=== PATIENT | male | born 1965 | race Caucasian/White ===

== ENCOUNTER 2017-04-25 09:07 | Inpatient (IN) | payer OTHER ==
[2017-04-25 10:58] VITALS: BMI 25.7
--- NOTE | 2017-04-25 15:28 | HP ---
COWS - Scale Resting Pulse: 1= [place] 81-100 Sweatin= Chills/Flushing Restless Observation: 1= Difficult to Sit Still Pupil Size: 0= Normal to Room Light Bone or Joint Aches: 2= Severe Diffuse Aches Runny Nose/ Eye Tearin= None GI Upset > 30mins: 2= Nausea/Diarrhea Tremor Observation: 2= Slight Tremor Visible Yawning Observation: 2= >3x During Session Anxiety or Irritability: 2=Irritable/Anxious Goose Flesh Skin: 3=Piloerection COWS Score: 16 Admission ROS BHS - HPI Chief Complaint: I just relapsed and need the help and get my life back. Allergies/Adverse Reactions: Allergies Allergy/AdvReac Type Severity Reaction Status Date / Time Fish Containing Products Allergy Severe Rash Verified 04/25/17 12:19 History of Present Illness: pt is a 51yr old male with a history of heroin dependence seeking detox for treatment. Exam Limitations: No Limitations - Ebola screening Have you traveled outside of the country in the last 21 days: No Have you had contact with anyone from an Ebola affected area: No Have you been sick,other than usual withdrawal symptoms: No Do you have a fever: No - Review of Systems Constitutional: Chills, Diaphoresis, Changes in sleep EENT: reports: Tearing, Nose Congestion Respiratory: reports: No Symptoms reported Cardiac: reports: No Symptoms Reported GI: reports: No Symptoms Reported : reports: No Symptoms Reported Musculoskeletal: reports: Back Pain Integumentary: reports: Flushing, Sweating Neuro: reports: Headache Endocrine: reports: No Symptoms Reported, Flushing, Intolerance to Heat, Increased Hunger Hematology: reports: No Symptoms Reported Psychiatric: reports: No Sypmtoms Reported, Judgement Intact, Mood/Affect Appropiate, Orientated x3, Agitated, Anxious Other Systems: Reviewed and Negative Patient History - Patient Medical History Hx Anemia: No Hx Asthma: Yes (Pt is on MDI.) Hx Chronic Obstructive Pulmonary Disease (COPD): No Hx Cancer: No Hx Cardiac Disorders: No Hx Congestive Heart Failure: No Hx Hypertension: No Hx Hypercholesterolemia: No Hx Pacemaker: No HX Cerebrovascular Accident: No Hx Seizures: No Hx Dementia: No Hx Diabetes: No Hx Gastrointestinal Disorders: No Hx Liver Disease: No Hx Genitourinary Disorders: No Hx Sexually Transmitted Disorders: No Hx Renal Disease (ESRD): No Hx Thyroid Disease: No Hx Human Immunodeficiency Virus (HIV): No (negative) Hx Hepatitis C: No (negative) Hx Depression: No Hx Suicide Attempt: No (denies) Hx Bipolar Disorder: No Hx Schizophrenia: No - Patient Surgical History Past Surgical History: No Hx Neurologic Surgery: No Hx Cataract Extraction: No Hx Cardiac Surgery: No Hx Lung Surgery: No Hx Breast Surgery: No Hx Breast Biopsy: No Hx Abdominal Surgery: No Hx Appendectomy: No Hx Cholecystectomy: No Hx Genitourinary Surgery: No Hx Section: No Hx Orthopedic Surgery: No Anesthesia Reaction: No - PPD History Previous Implant?: Yes Documented Results: Negative w/o proof Implanted On Prior [facility] Admission?: Yes Date: 11/26/15 PPD to be Administered?: Yes - Reproductive History Patient is a Female of Child Bearing Age (11 -55 yrs old): No - Smoking Cessation Smoking history: Current every day smoker Have you smoked in the past 12 months: Yes Aproximately how many cigarettes per day: 3 Hx Chewing Tobacco Use: No Initiated information on smoking cessation: Yes 'Breaking Loose' booklet given: 04/25/17 - Substance & Tx. History Hx Alcohol Use: No Hx Substance Use: Yes Substance Use Type: Heroin Hx Substance Use Treatment: Yes (last detox [facility] about a year ago.) - Substances Abused Heroin Route: Injection Frequency: Daily Amount used: 8-9 bags Age of first use: 21 Date of Last Use: 04/24/17 Family Disease History - Family Disease History Family History: Denies Admission Physical Exam BHS - Vital Signs Vital Signs: Vital Signs - 24 hr 04/25/17 10:54 Temperature 98.7 F Pulse Rate 97 H Respiratory 20 Rate Blood Pressure 120/86 - Physical General Appearance: Yes: Appropriately Dressed, Moderate Distress, Tremorous, Irritable, Sweating, Anxious HEENTM: Yes: Hearing grossly Normal, Normal Voice, Nasal Congestion Respiratory: Yes: Lungs Clear, Normal Breath Sounds, No Respiratory Distress Neck: Yes: No masses,lesions,Nodules Breast: Yes: Within Normal Limits Cardiology: Yes: Regular Rhythm, Regular Rate, S1, S2 Abdominal: Yes: Normal Bowel Sounds, Non Tender, Soft Genitourinary: Yes: Within Normal Limits Back: Yes: Normal Inspection Musculoskeletal: Yes: Gait Steady, Back pain Extremities: Yes: Normal Capillary Refill, Normal Inspection, Tremors Neurological: Yes: Fully Oriented, Alert, Normal Response Integumentary: Yes: Normal Color, Diaphoresis, Track Serra Lymphatic: Yes: Within Normal Limits - Diagnostic (1) Asthma Current Visit: Yes Status: Chronic Qualifiers: Asthma severity: mild intermittent Asthma complication type: uncomplicated Qualified Code(s): J45.20 - Mild intermittent asthma, uncomplicated (2) Nicotine dependence Current Visit: Yes Status: Chronic Qualifiers: Nicotine product type: cigarettes Substance use status: uncomplicated Qualified Code(s): F17.210 - Nicotine dependence, cigarettes, uncomplicated (3) Opioid dependence with withdrawal Current Visit: Yes Status: Chronic (4) Cocaine dependence Current Visit: Yes Status: Chronic Qualifiers: Substance use status: uncomplicated Qualified Code(s): F14.20 - Cocaine dependence, uncomplicated Cleared for Admission [facility] - Detox or Rehab [facility] Level of Care: Medically Managed Detox Regimen/Protocol: Methadone [facility] Breath Alcohol Content Breath Alcohol Content: 0 Urine Drug Screen - Results Drug Screen Negative: No Urine Drug Screen Results: THC-Marijuana, ATRI-Cocaine, OPI-Opiates
[2017-04-25] MEDS ORDERED: LOPERAMIDE HCL 2 MG CAPSULE PO PRN (15:31)
[2017-04-25] MEDS ORDERED: MAGNESIUM CITRATE 300 ML BOTTLE PO PRN (15:31)
[2017-04-25] MEDS ORDERED: IBUPROFEN 400 MG TABLET (FP) PO PRN (15:31)
[2017-04-25] MEDS ORDERED: MAGNESIUM HYDROX 2400MG/30ML ORAL SUSPENSION 30 ML CUP PO PRN (15:31)
[2017-04-25] MEDS ORDERED: ACETAMINOPHEN 325 MG TABLET (FP) PO PRN (15:31)
[2017-04-25] MEDS ORDERED: hydrOXYzine PAMOATE 50 MG CAPSULE (FP) PO PRN (15:31)
[2017-04-25] MEDS ORDERED: P-EPHED 60MG/TRIPROLIDI 2.5MG TABLET PO PRN (15:31)
[2017-04-25] MEDS ORDERED: MENTHOL/PHENOL 1 EACH UD MM PRN (15:31)
[2017-04-25] MEDS ORDERED: MAG HYDROX/AL HYDROX/SIMETH 30 ML UNIT-DOSE CUP PO PRN (15:31)
[2017-04-25] MEDS ORDERED: guaiFENesin/D-METHORPHAN HB 10 ML UNIT-DOSE CUPS PO PRN (15:31)
[2017-04-25] MEDS ORDERED: ALBUTEROL SO4 6.7 GM HFA INHALER IH PRN (15:33)
[2017-04-25] MEDS ORDERED: METHADONE HCL 10 MG TABLET (FOR DETOX USE ONLY) PO ONE ×2 (15:38→23:00)
[2017-04-25] MEDS: diazePAM 5 MG TABLET PO PRN ×2 (17:18→23:04)
[2017-04-25 17:25] LABS: URINE APPEARANCE SLCLOUDY; URINE BILIRUBIN NEGATIVE (NEGATIVE); URINE BLOOD NEGATIVE (NEGATIVE); URINE COLOR YELLOW; URINE GLUCOSE (UA) 1+ (NEGATIVE); URINE KETONE NEGATIVE (NEGATIVE); URINE LEUK ESTERASE NEGATIVE (NEGATIVE); URINE NITRITE NEGATIVE (NEGATIVE); URINE PROTEIN NEGATIVE (NEGATIVE); URINE UROBILINOGEN NEGATIVE mg/dL (0.2-1.0)
[2017-04-25] MEDS: THIAMINE HCL 100 MG TABLET (FP) PO SCH (23:03)
[2017-04-26] MEDS: diazePAM 5 MG TABLET PO PRN ×4 (05:53→22:31)
[2017-04-26] MEDS ORDERED: METHADONE HCL 10 MG TABLET (FOR DETOX USE ONLY) PO ONE (10:00)
[2017-04-26 10:41] LABS: MCH 22.6 pg (25.7-33.7); MCHC 31.5 g/dl (32.0-35.9); MEAN CELL VOLUME 71.8 fl (80-96); MEAN PLT VOLUME 10.6 fl (7.5-11.1); PLATELET COUNT 201 K/MM3 (134-434); RDW 16.5 % (11.9-15.9); WHITE BLOOD COUNT 8.2 K/mm3 (4.0-10.0)
[2017-04-26 10:50] LABS: ALBUMIN 3.6 g/dl (3.4-5.0); ANION GAP 11 (8-16); BILIRUBIN,TOTAL 0.9 mg/dL (0.2-1.0); CALCIUM 8.8 mg/dL (8.5-10.1); CO2 28 mmol/L (21-32); GLUCOSE,RANDOM 130 mg/dL (74-106); SGOT/AST 97 U/L (15-37); SGPT/ALT 149 U/L (12-78); TOT PROT 7.5 g/dl (6.4-8.2)
[2017-04-26 10:51] LABS: ALK PHOS 84 U/L (45-117)
[2017-04-26] MEDS: PRENATAL VITAMINS W/ FOLIC ACID TABLET (FP) PO SCH (11:12)
[2017-04-26] MEDS: NICOTINE 14 MG/24 HOURS TOPICAL PATCH TD SCH (11:14)
--- NOTE | 2017-04-26 12:34 | PN ---
BHS COWS - Scale Resting Pulse: 1= [place] 81-100 Sweatin= Chills/Flushing Restless Observation: 1= Difficult to Sit Still Pupil Size: 0= Normal to Room Light Bone or Joint Aches: 2= Severe Diffuse Aches Runny Nose/ Eye Tearin= Runny Nose/Eyes GI Upset > 30mins: 2= Nausea/Diarrhea Tremor Observation of Outstretched Hands: 2= Slight Tremor Visible Yawning Observation: 1= 1-2x During Session Anxiety or Irritability: 2=Irritable/Anxious Goose Flesh Skin: 0=Smooth Skin COWS Score: 14 S Progress Note (SOAP) Subjective: Interrupted sleep, abdominal discomfort, back pain Objective: 04/26/17 12:34 Vital Signs - 8 hr 04/26/17 04/26/17 06:39 10:59 Temperature 98.1 F 97.7 F Pulse Rate 82 100 H Respiratory 18 18 Rate Blood Pressure 150/86 162/81 Laboratory Last Values WBC 8.2 K/mm3 (4.0-10.0) 04/26/17 06:08 RBC 6.27 M/mm3 (4.00-5.60) H 04/26/17 06:08 Hgb 14.2 GM/dL (11.7-16.9) 04/26/17 06:08 Hct 45.0 % (35.4-49) 04/26/17 06:08 MCV 71.8 fl (80-96) L 04/26/17 06:08 MCH 22.6 pg (25.7-33.7) L 04/26/17 06:08 MCHC 31.5 g/dl (32.0-35.9) L 04/26/17 06:08 RDW 16.5 % (11.9-15.9) H 04/26/17 06:08 Plt Count 201 K/MM3 (134-434) 04/26/17 06:08 MPV 10.6 fl (7.5-11.1) D 04/26/17 06:08 Sodium 140 mmol/L (136-145) 04/26/17 06:08 Potassium 3.9 mmol/L (3.5-5.1) 04/26/17 06:08 Chloride 101 mmol/L (98-107) 04/26/17 06:08 Carbon Dioxide 28 mmol/L (21-32) 04/26/17 06:08 Anion Gap 11 (8-16) 04/26/17 06:08 BUN 12 mg/dL (7-18) D 04/26/17 06:08 Creatinine 1.0 mg/dL (0.7-1.3) 04/26/17 06:08 Creat Clearance w eGFR > 60 (>60) 04/26/17 06:08 Random Glucose 130 mg/dL (74-106) H D 04/26/17 06:08 Calcium 8.8 mg/dL (8.5-10.1) 04/26/17 06:08 Total Bilirubin 0.9 mg/dL (0.2-1.0) D 04/26/17 06:08 AST 97 U/L (15-37) H D 04/26/17 06:08 ALT 149 U/L (12-78) H D 04/26/17 06:08 Alkaline Phosphatase 84 U/L (45-117) 04/26/17 06:08 Total Protein 7.5 g/dl (6.4-8.2) 04/26/17 06:08 Albumin 3.6 g/dl (3.4-5.0) 04/26/17 06:08 Urine Color Yellow 04/25/17 15:00 Urine Appearance Slcloudy 04/25/17 15:00 Urine pH 5.0 (5.0-8.0) D 04/25/17 15:00 Ur Specific [place] 1.020 (1.005-1.025) 04/25/17 15:00 Urine Protein Negative (NEGATIVE) 04/25/17 15:00 Urine Glucose (UA) 1+ (NEGATIVE) H 04/25/17 15:00 Urine Ketones Negative (NEGATIVE) 04/25/17 15:00 Urine Blood Negative (NEGATIVE) 04/25/17 15:00 Urine Nitrite Negative (NEGATIVE) 04/25/17 15:00 Urine Bilirubin Negative (NEGATIVE) 04/25/17 15:00 Urine Urobilinogen Negative mg/dL (0.2-1.0) 04/25/17 15:00 labs noted Assessment: 04/26/17 12:34 withdrawal sx Plan: continue detox
[2017-04-26] MEDS: diphenhydrAMINE HCL 50 MG CAPSULE PO PRN (22:31)
[2017-04-26] MEDS: THIAMINE HCL 100 MG TABLET (FP) PO SCH (22:31)
[2017-04-27] MEDS ORDERED: METHADONE HCL 5 MG TABLET (FOR DETOX USE ONLY) PO ONE (10:00)
[2017-04-27] MEDS: PRENATAL VITAMINS W/ FOLIC ACID TABLET (FP) PO SCH (10:41)
[2017-04-27] MEDS: NICOTINE 14 MG/24 HOURS TOPICAL PATCH TD SCH (10:41)
[2017-04-27] MEDS: diazePAM 5 MG TABLET PO PRN ×2 (10:44→20:12)
--- NOTE | 2017-04-27 15:51 | PN ---
BHS COWS - Scale Resting Pulse: 2= [place] 101-120 Sweatin=Flushed/Facial Moisture Restless Observation: 1= Difficult to Sit Still Pupil Size: 0= Normal to Room Light Bone or Joint Aches: 2= Severe Diffuse Aches Runny Nose/ Eye Tearin= Runny Nose/Eyes GI Upset > 30mins: 2= Nausea/Diarrhea Tremor Observation of Outstretched Hands: 2= Slight Tremor Visible Yawning Observation: 1= 1-2x During Session Anxiety or Irritability: 2=Irritable/Anxious Goose Flesh Skin: 0=Smooth Skin COWS Score: 16 BHS Progress Note (SOAP) Subjective: Sweating,anxiety,body aches,joint pain Objective: 04/27/17 15:50 Vital Signs - 8 hr 04/27/17 04/27/17 10:18 13:44 Temperature 98.1 F 96.3 F L Pulse Rate 106 H 106 H Respiratory 18 16 Rate Blood Pressure 132/74 127/81 Laboratory Tests 04/25/17 04/26/17 04/26/17 15:00 06:08 06:08 WBC 8.2 RBC 6.27 H Hgb 14.2 Hct 45.0 MCV 71.8 L MCH 22.6 L MCHC 31.5 L RDW 16.5 H Plt Count 201 MPV 10.6 D Sodium 140 Potassium 3.9 Chloride 101 Carbon Dioxide 28 Anion Gap 11 BUN 12 D Creatinine 1.0 Creat Clearance w eGFR > 60 Random Glucose 130 H D Calcium 8.8 Total Bilirubin 0.9 D AST 97 H D ALT 149 H D Alkaline Phosphatase 84 Total Protein 7.5 Albumin 3.6 Urine Color Yellow Urine Appearance Slcloudy Urine pH 5.0 D Ur Specific [place] 1.020 Urine Protein Negative Urine Glucose (UA) 1+ H Urine Ketones Negative Urine Blood Negative Urine Nitrite Negative Urine Bilirubin Negative Urine Urobilinogen Negative RPR Titer 04/26/17 06:08 WBC RBC Hgb Hct MCV MCH MCHC RDW Plt Count MPV Sodium Potassium Chloride Carbon Dioxide Anion Gap BUN Creatinine Creat Clearance w eGFR Random Glucose Calcium Total Bilirubin AST ALT Alkaline Phosphatase Total Protein Albumin Urine Color Urine Appearance Urine pH Ur Specific [place] Urine Protein Urine Glucose (UA) Urine Ketones Urine Blood Urine Nitrite Urine Bilirubin Urine Urobilinogen RPR Titer Nonreactive labs noted Assessment: 04/27/17 15:50 Withdrawal sx. Plan: Continue detox
[2017-04-27] MEDS: diphenhydrAMINE HCL 50 MG CAPSULE PO PRN (22:45)
[2017-04-27] MEDS: THIAMINE HCL 100 MG TABLET (FP) PO SCH (22:46)
[2017-04-28] MEDS: diazePAM 5 MG TABLET PO PRN ×3 (00:27→10:55)
[2017-04-28] MEDS ORDERED: METHADONE HCL 5 MG TABLET (FOR DETOX USE ONLY) PO ONE (10:00)
[2017-04-28] MEDS: PRENATAL VITAMINS W/ FOLIC ACID TABLET (FP) PO SCH (10:55)
[2017-04-28] MEDS: NICOTINE 14 MG/24 HOURS TOPICAL PATCH TD SCH (10:55)
--- NOTE | 2017-04-28 11:25 | PN ---
BHS Progress Note (SOAP) Subjective: alert,irritable,anxious,interrupted sleep,tremor,pain in the body Objective: 04/28/17 11:24 Vital Signs Temperature 97.8 F 04/28/17 10:19 Pulse Rate 105 H 04/28/17 10:19 Respiratory Rate 18 04/28/17 10:19 Blood Pressure 143/84 04/28/17 10:19 O2 Sat by Pulse Oximetry (%) Assessment: 04/28/17 11:24 withdrawal symptom 04/28/17 11:25 Plan: continue detox
--- NOTE | 2017-04-28 17:03 | EKG ---
Test Reason : Blood Pressure : / mmHG Vent. Rate : 092 BPM Atrial Rate : 092 BPM P-R Int : 134 ms QRS Dur : 080 ms QT Int : 362 ms P-R-T Axes : 066 065 050 degrees QTc Int : 447 ms NORMAL SINUS RHYTHM MODERATE VOLTAGE CRITERIA FOR LVH, MAY BE NORMAL VARIANT BORDERLINE ECG NO PREVIOUS ECGS AVAILABLE Confirmed by JOCY BLOOD MD ([id number]) on 04/28/2017 5:03:03 PM Referred By: Confirmed By:JOCY BLOOD MD
[2017-04-28] MEDS: THIAMINE HCL 100 MG TABLET (FP) PO SCH (22:45)
[2017-04-28] MEDS ORDERED: TRIMETHOBENZAMIDE HCL 200MG/2ML INJ IM PRN (23:27)
--- NOTE | 2017-04-29 09:39 | PN ---
BHS Progress Note (SOAP) Subjective: alert,interrupted sleep Objective: 04/29/17 09:37 Vital Signs Temperature 97.7 F 04/29/17 06:00 Pulse Rate 97 H 04/29/17 06:00 Respiratory Rate 18 04/29/17 06:00 Blood Pressure 134/89 04/29/17 06:00 O2 Sat by Pulse Oximetry (%) 04/29/17 09:38 Assessment: 04/29/17 09:38 patient is stable,no withdrawal symptom Plan: discharge today,follow up with after care program as arrangement
--- NOTE | 2017-04-29 09:54 | DS ---
[facility] Detox Discharge Summary Admission Date: 04/25/17 Discharge Date: 04/29/17 - History Present History: Cocaine Dependence, Opioid Dependence Additional Comments: follow up with after care program as arrangement Pertinent Past History: asthma nicotine dependence - Physical Exam Results Vital Signs: Vital Signs Temperature 97.7 F 04/29/17 06:00 Pulse Rate 97 H 04/29/17 06:00 Respiratory Rate 18 04/29/17 06:00 Blood Pressure 134/89 04/29/17 06:00 O2 Sat by Pulse Oximetry (%) Pertinent Admission Physical Exam Findings: withdrawal symptom - Treatment Hospital Course: Detox Protocol Followed, Detoxed Safely, Responded well, Discharged Condition Good, Rehab Referral Accepted Patient has Accepted a Rehab Referral to: [facility] - Medication Discharge Medications: Ambulatory Orders Albuterol Sulfate Inhaler - [Ventolin HFA Inhaler -] 2 puff IH Q4H PRN #1 inhaler 04/29/17 Albuterol Sulfate Inhaler - [Ventolin HFA Inhaler -] 2 puff IH Q4H PRN #1 inhaler 04/29/17 - Diagnosis (1) Opioid dependence with withdrawal Current Visit: Yes Status: Chronic (2) Asthma Current Visit: Yes Status: Chronic Qualifiers: Asthma severity: mild intermittent Asthma complication type: uncomplicated Qualified Code(s): J45.20 - Mild intermittent asthma, uncomplicated (3) Cocaine dependence Current Visit: Yes Status: Chronic Qualifiers: Substance use status: uncomplicated Qualified Code(s): F14.20 - Cocaine dependence, uncomplicated (4) Nicotine dependence Current Visit: Yes Status: Chronic Qualifiers: Nicotine product type: cigarettes Substance use status: uncomplicated Qualified Code(s): F17.210 - Nicotine dependence, cigarettes, uncomplicated - AMA Did Patient Leave Against Medical Advice: No
[2017-04-29] MEDS ORDERED: METHADONE HCL 10 MG TABLET (FOR DETOX USE ONLY) PO ONE (10:00)
[2017-04-29 10:02] VITALS: BP 136/84; PULSE 107; TEMP 97.5
[2017-04-29] MEDS: PRENATAL VITAMINS W/ FOLIC ACID TABLET (FP) PO SCH (11:01)
[2017-04-29] MEDS: diphenhydrAMINE HCL 50 MG CAPSULE PO PRN (11:01)
[2017-04-29] MEDS: NICOTINE 14 MG/24 HOURS TOPICAL PATCH TD SCH (11:01)
[2017-04-30] MEDS ORDERED: METHADONE HCL 5 MG TABLET (FOR DETOX USE ONLY) PO ONE (06:00)
== END 2017-04-29 11:22 | disposition home or self-care (01) | DRG 773 ==
LOC: YASAS 09:07 → Y6N 13:49
PROVIDERS: ADMIT Internal Medicine; ATTEND Internal Medicine
PROC: HZ2ZZZZ Detoxification Services for Substance Abuse Treatment (ICD-10-PCS; principal; 2017-04-25)
DX: F11.23 Opioid dependence with withdrawal (principal); F14.20 Cocaine dependence, uncomplicated; F17.210 Nicotine dependence, cigarettes, uncomplicated; J45.20 Mild intermittent asthma, uncomplicated
CPT/HCPCS: 36415; 80053; 81003; 85027; 86593; 93005; 93010

== ENCOUNTER 2018-05-10 17:16 | Inpatient (IN) | payer OTHER ==
[2018-05-10 17:45] VITALS: BMI 23.5
--- NOTE | 2018-05-10 19:17 | HP ---
COWS - Scale Resting Pulse: 1= [place] 81-100 Sweatin= Chills/Flushing Restless Observation: 3= Extraneous Movement Pupil Size: 1= Pupils >than Normal Bone or Joint Aches: 2= Severe Diffuse Aches Runny Nose/ Eye Tearin= Runny Nose/Eyes GI Upset > 30mins: 2= Nausea/Diarrhea Tremor Observation: 2= Slight Tremor Visible Yawning Observation: 1= 1-2x During Session Anxiety or Irritability: 2=Irritable/Anxious Goose Flesh Skin: 0=Smooth Skin COWS Score: 17 Admission ROS S - HPI Chief Complaint: i need help to sop using heroin,street methadone,marijuana Allergies/Adverse Reactions: Allergies Allergy/AdvReac Type Severity Reaction Status Date / Time Fish Containing Products Allergy Severe Rash Verified 05/10/18 17:39 History of Present Illness: this 52 years old male with heroin,marijuana,street methadone dependence, [facility],withdrawal symptom,last treatment 01/26 [facility] multiple admissions in detox but keep relapsing nicotine dependence longest period of sobriety 10 years history of asthma weight loss Exam Limitations: No Limitations - Ebola screening Have you traveled outside of the country in the last 21 days: No (N) Have you had contact with anyone from an Ebola affected area: No Have you been sick,other than usual withdrawal symptoms: No Do you have a fever: No - Review of Systems Constitutional: Chills, Loss of Appetite, Malaise, Night Sweats, Changes in sleep, Weakness, Unintentional Wgt. Loss EENT: reports: Tearing, Nose Congestion Respiratory: reports: No Symptoms reported, Other (asthma) Cardiac: reports: Palpitations GI: reports: Diarrhea, Nausea, Vomiting, Abdominal cramping : reports: No Symptoms Reported Musculoskeletal: reports: Back Pain, Joint Pain, Muscle Pain, Joint Stiffness Integumentary: reports: Dryness Neuro: reports: Headache, Tremors Endocrine: reports: No Symptoms Reported Hematology: reports: No Symptoms Reported Psychiatric: reports: No Sypmtoms Reported, Judgement Intact, Mood/Affect Appropiate, Orientated x3 Patient History - Patient Medical History Hx Anemia: No Hx Asthma: Yes (Pt is on MDI.) Hx Chronic Obstructive Pulmonary Disease (COPD): No Hx Cancer: No Hx Cardiac Disorders: No Hx Congestive Heart Failure: No Hx Hypertension: No Hx Hypercholesterolemia: No Hx Pacemaker: No HX Cerebrovascular Accident: No Hx Seizures: No Hx Dementia: No Hx Diabetes: No Hx Gastrointestinal Disorders: No Hx Liver Disease: No Hx Genitourinary Disorders: No Hx Sexually Transmitted Disorders: No Hx Renal Disease (ESRD): No Hx Thyroid Disease: No Hx Human Immunodeficiency Virus (HIV): No (negative last 10/26) Hx Hepatitis C: No (negative) Hx Depression: No Hx Suicide Attempt: No (denies) Hx Bipolar Disorder: No Hx Schizophrenia: No Other Medical History: no suicidal,no homicidal - Patient Surgical History Past Surgical History: No Hx Neurologic Surgery: No Hx Cataract Extraction: No Hx Cardiac Surgery: No Hx Lung Surgery: No Hx Breast Surgery: No Hx Breast Biopsy: No Hx Abdominal Surgery: No Hx Appendectomy: No Hx Cholecystectomy: No Hx Genitourinary Surgery: No Hx Section: No Hx Orthopedic Surgery: No Anesthesia Reaction: No - PPD History Previous Implant?: Yes Documented Results: Negative w/proof Implanted On Prior R Admission?: Yes Date: 04/27/17 Results: 0 mm PPD to be Administered?: Yes - Smoking Cessation Smoking history: Current every day smoker Have you smoked in the past 12 months: Yes Aproximately how many cigarettes per day: 3 Hx Chewing Tobacco Use: No Initiated information on smoking cessation: Yes 'Breaking Loose' booklet given: 05/10/18 - Substance & Tx. History Hx Alcohol Use: No Hx Substance Use: Yes Substance Use Type: Heroin, Marijuana Hx Substance Use Treatment: Yes ([facility] completed) - Substances Abused Heroin Route: Injection Frequency: Daily Amount used: 10 bags Age of first use: 25 Date of Last Use: 05/09/18 Marijuana/Hashish Route: Smoking Frequency: Daily Amount used: 2 blunts Age of first use: 15 Date of Last Use: 05/06/18 Non-Rx Methadone Route: Oral Frequency: 1-2 times per week Amount used: 10mg Age of first use: 52 Date of Last Use: 05/06/18 Family Disease History - Family Disease History Family History: Denies Admission Physical Exam BHS - Vital Signs Vital Signs: Vital Signs - 24 hr 05/10/18 05/10/18 17:30 17:43 Temperature 98.6 F 98.6 F Pulse Rate 87 87 Respiratory 19 19 Rate Blood Pressure 148/92 148/92 - Physical General Appearance: Yes: Moderate Distress, Tremorous, Irritable, Sweating, Anxious HEENTM: Yes: Normal ENT Inspection, RADHA, Pharynx Normal Respiratory: Yes: Lungs Clear, Normal Breath Sounds, No Respiratory Distress Neck: Yes: Within Normal Limits Breast: Yes: Within Normal Limits Cardiology: Yes: Within Normal Limits, Regular Rhythm, Regular Rate, S1, S2 Abdominal: Yes: Within Normal Limits, Normal Bowel Sounds, Non Tender, Soft Genitourinary: Yes: Within Normal Limits Back: Yes: Muscle Spasm Musculoskeletal: Yes: Back pain, Joint Stiffness, Muscle Pain Extremities: Yes: Within Normal Limits, Normal Range of Motion, Tremors Neurological: Yes: [employer] II-XII NML intact, Fully Oriented, Alert, Motor Strength 5/5 Integumentary: Yes: Dry, Track Serra Lymphatic: Yes: Within Normal Limits - Diagnostic (1) Opioid dependence with withdrawal Current Visit: No Status: Chronic (2) Asthma Current Visit: No Status: Chronic Qualifiers: Asthma severity: mild intermittent Asthma complication type: uncomplicated (3) Cocaine dependence Current Visit: No Status: Chronic Qualifiers: Substance use status: uncomplicated Qualified Code(s): F14.20 - Cocaine dependence, uncomplicated (4) Nicotine dependence Current Visit: No Status: Chronic Qualifiers: Nicotine product type: cigarettes Substance use status: uncomplicated Qualified Code(s): F17.210 - Nicotine dependence, cigarettes, uncomplicated (5) Weight loss Current Visit: Yes Status: Acute (6) IV drug user Current Visit: Yes Status: Acute Cleared for Admission [facility] - Detox or Rehab [facility] Level of Care: Medically Managed Detox Regimen/Protocol: Methadone [facility] Breath Alcohol Content Breath Alcohol Content: 0 Urine Drug Screen - Results Drug Screen Negative: No Urine Drug Screen Results: THC-Marijuana, OPI-Opiates, MTD-Methadone
[2018-05-10] MEDS ORDERED: MAGNESIUM HYDROX 2400MG/30ML ORAL SUSPENSION 30 ML CUP PO PRN (19:36)
[2018-05-10] MEDS ORDERED: ACETAMINOPHEN 325 MG TABLET (FP) PO PRN (19:36)
[2018-05-10] MEDS ORDERED: hydrOXYzine PAMOATE 25 MG CAPSULE (FP) PO PRN (19:36)
[2018-05-10] MEDS ORDERED: P-EPHED 60MG/TRIPROLIDI 2.5MG TABLET PO PRN (19:36)
[2018-05-10] MEDS ORDERED: IBUPROFEN 400 MG TABLET (FP) PO PRN (19:36)
[2018-05-10] MEDS ORDERED: MENTHOL/PHENOL 1 EACH UD MM PRN (19:36)
[2018-05-10] MEDS ORDERED: guaiFENesin/D-METHORPHAN HB 10 ML UNIT-DOSE CUPS PO PRN (19:36)
[2018-05-10] MEDS ORDERED: MAGNESIUM CITRATE 300 ML BOTTLE PO PRN (19:36)
[2018-05-10] MEDS ORDERED: ALBUTEROL SO4 8 GM HFA INHALER IH PRN (19:40)
[2018-05-10] MEDS ORDERED: METHADONE HCL 10 MG TABLET (FOR DETOX USE ONLY) PO ONE ×2 (20:00→23:00)
[2018-05-10] MEDS: diazePAM 5 MG TABLET PO PRN (20:15)
[2018-05-10] MEDS ORDERED: MELATONIN 5 MG TABLETS PO PRN (22:00)
[2018-05-10] MEDS: THIAMINE HCL 100 MG TABLET (FP) PO SCH (22:26)
[2018-05-10] MEDS: cloNIDine HCL 0.1 MG TABLET PO SCH (22:26)
[2018-05-10] MEDS: CYCLOBENZAPRINE HCL 10 MG TABLET (FP) PO PRN (22:26)
[2018-05-10 22:55] LABS: URINE APPEARANCE CLOUDY; URINE BILIRUBIN NEGATIVE (<2.0 mg/dL); URINE COLOR DKYELLOW; URINE GLUCOSE (UA) NEGATIVE (NEGATIVE); URINE KETONE NEGATIVE (NEGATIVE); URINE LEUK ESTERASE NEGATIVE (NEGATIVE); URINE NITRITE NEGATIVE (NEGATIVE); URINE PROTEIN NEGATIVE (NEGATIVE); URINE UROBILINOGEN NEGATIVE mg/dL (0.2-1.0)
[2018-05-10 22:58] LABS: EPI CELLS RARE /HPF (FEW); URINE MUCUS RARE
--- NOTE | 2018-05-11 06:06 | EKG ---
Test Reason : Blood Pressure : / mmHG Vent. Rate : 084 BPM Atrial Rate : 084 BPM P-R Int : 126 ms QRS Dur : 082 ms QT Int : 378 ms P-R-T Axes : 070 075 052 degrees QTc Int : 446 ms NORMAL SINUS RHYTHM WITH SINUS ARRHYTHMIA VOLTAGE CRITERIA FOR LEFT VENTRICULAR HYPERTROPHY ABNORMAL ECG WHEN COMPARED WITH ECG OF 25-APR-2017 16:34, NO SIGNIFICANT CHANGE WAS FOUND Confirmed by MIKO ALCANTAR MD ([id number]) on 05/11/2018 6:06:12 AM Referred By: Confirmed By:MIKO ALCANTAR MD
[2018-05-11] MEDS: diazePAM 5 MG TABLET PO PRN ×2 (09:26→22:23)
[2018-05-11] MEDS ORDERED: METHADONE HCL 10 MG TABLET (FOR DETOX USE ONLY) PO ONE (10:00)
[2018-05-11 10:23] LABS: HEMATOCRIT 44.6 % (35.4-49); HEMOGLOBIN 13.8 GM/dL (11.7-16.9); MCH 22.7 pg (25.7-33.7); MCHC 30.9 g/dl (32.0-35.9); MEAN CELL VOLUME 73.7 fl (80-96); MEAN PLT VOLUME 9.6 fl (7.5-11.1); PLATELET COUNT 167 K/MM3 (134-434); RBC 6.06 M/mm3 (4.00-5.60); RDW 16.4 % (11.9-15.9)
[2018-05-11] MEDS: CYCLOBENZAPRINE HCL 10 MG TABLET (FP) PO PRN ×2 (10:26→22:24)
[2018-05-11] MEDS: cloNIDine HCL 0.1 MG TABLET PO SCH ×2 (10:26→22:24)
[2018-05-11] MEDS: PRENATAL VITAMINS W/ FOLIC ACID TABLET (FP) PO SCH (10:26)
[2018-05-11 10:30] LABS: ALBUMIN 3.2 g/dl (3.4-5.0); ALK PHOS 80 U/L (45-117); ANION GAP 6 MMOL/L (8-16); BILIRUBIN,TOTAL 0.5 mg/dL (0.2-1); BLOOD UREA NITROGEN 12 mg/dL (7-18); CALCIUM 9.2 mg/dL (8.5-10.1); CHLORIDE 102 mmol/L (98-107); CO2 32 mmol/L (21-32); CREATININE 0.8 mg/dL (0.55-1.3); GLUCOSE,RANDOM 100 mg/dL (74-106); POTASSIUM 4.1 mmol/L (3.5-5.1); SGOT/AST 120 U/L (15-37); SGPT/ALT 206 U/L (13-61); SODIUM 140 mmol/L (136-145); TOT PROT 7.1 g/dl (6.4-8.2)
--- NOTE | 2018-05-11 17:22 | PN ---
BHS COWS - Scale Resting Pulse: 1= [place] 81-100 Sweatin=Flushed/Facial Moisture Restless Observation: 1= Difficult to Sit Still Pupil Size: 0= Normal to Room Light Bone or Joint Aches: 1= Mild Discomfort Runny Nose/ Eye Tearin= Runny Nose/Eyes GI Upset > 30mins: 1= Stomach Cramp Tremor Observation of Outstretched Hands: 2= Slight Tremor Visible Yawning Observation: 1= 1-2x During Session Anxiety or Irritability: 1=Feels Anxious/Irritable Goose Flesh Skin: 0=Smooth Skin COWS Score: 12 BHS Progress Note (SOAP) Subjective: SWEATS CHILLS SLEEPLESS Objective: 05/11/18 17:19 A & OX 3 Vital Signs Temperature 98.4 F 05/11/18 13:28 Pulse Rate 81 05/11/18 13:28 Respiratory Rate 18 05/11/18 13:28 Blood Pressure 109/71 05/11/18 13:28 O2 Sat by Pulse Oximetry (%) Laboratory Last Values WBC 7.0 K/mm3 (4.0-10.0) 05/11/18 07:00 RBC 6.06 M/mm3 (4.00-5.60) H 05/11/18 07:00 Hgb 13.8 GM/dL (11.7-16.9) 05/11/18 07:00 Hct 44.6 % (35.4-49) 05/11/18 07:00 MCV 73.7 fl (80-96) L 05/11/18 07:00 MCH 22.7 pg (25.7-33.7) L 05/11/18 07:00 MCHC 30.9 g/dl (32.0-35.9) L 05/11/18 07:00 RDW 16.4 % (11.9-15.9) H 05/11/18 07:00 Plt Count 167 K/MM3 (134-434) 05/11/18 07:00 MPV 9.6 fl (7.5-11.1) 05/11/18 07:00 Sodium 140 mmol/L (136-145) 05/11/18 07:00 Potassium 4.1 mmol/L (3.5-5.1) 05/11/18 07:00 Chloride 102 mmol/L (98-107) 05/11/18 07:00 Carbon Dioxide 32 mmol/L (21-32) 05/11/18 07:00 Anion Gap 6 MMOL/L (8-16) L 05/11/18 07:00 BUN 12 mg/dL (7-18) 05/11/18 07:00 Creatinine 0.8 mg/dL (0.55-1.3) 05/11/18 07:00 Creat Clearance w eGFR > 60 (>60) 05/11/18 07:00 Random Glucose 100 mg/dL (74-106) 05/11/18 07:00 Calcium 9.2 mg/dL (8.5-10.1) 05/11/18 07:00 Total Bilirubin 0.5 mg/dL (0.2-1) 05/11/18 07:00 AST 120 U/L (15-37) H 05/11/18 07:00 ALT 206 U/L (13-61) H 05/11/18 07:00 Alkaline Phosphatase 80 U/L (45-117) 05/11/18 07:00 Total Protein 7.1 g/dl (6.4-8.2) 05/11/18 07:00 Albumin 3.2 g/dl (3.4-5.0) L 05/11/18 07:00 Urine Color Dkyellow 05/10/18 22:45 Urine Appearance Cloudy 05/10/18 22:45 Urine pH 5.0 (5.0-8.0) 05/10/18 22:45 Ur Specific [place] 1.020 (1.001-1.035) 05/10/18 22:45 Urine Protein Negative (NEGATIVE) 05/10/18 22:45 Urine Glucose (UA) Negative (NEGATIVE) 05/10/18 22:45 Urine Ketones Negative (NEGATIVE) 05/10/18 22:45 Urine Blood 3+ (NEGATIVE) H 05/10/18 22:45 Urine Nitrite Negative (NEGATIVE) 05/10/18 22:45 Urine Bilirubin Negative (<2.0 mg/dL) 05/10/18 22:45 Urine Urobilinogen Negative mg/dL (0.2-1.0) 05/10/18 22:45 Ur Leukocyte Esterase Negative (NEGATIVE) 05/10/18 22:45 Urine WBC (Auto) 6 /hpf (3-5) 05/10/18 22:45 Urine RBC (Auto) 74 /hpf (0-3) 05/10/18 22:45 Ur Epithelial Cells Rare /HPF (FEW) 05/10/18 22:45 Urine Mucus Rare 05/10/18 22:45 RPR Titer Nonreactive (NONREACTIVE) 05/11/18 07:00 HIGH AST/ALT/ALK PHOSP ABNORMAL URINE RESULT Assessment: 05/11/18 17:22 WITHDRAWAL SX ABNORMAL URINALYSIS Plan: CONTINUE DETOX INCREASE WATER HYDRATION REPEAT UA IN A.M
[2018-05-11] MEDS: THIAMINE HCL 100 MG TABLET (FP) PO SCH (22:23)
[2018-05-12] MEDS: diazePAM 5 MG TABLET PO PRN ×3 (09:40→22:20)
[2018-05-12] MEDS ORDERED: METHADONE HCL 5 MG TABLET (FOR DETOX USE ONLY) PO ONE (10:00)
[2018-05-12] MEDS: PRENATAL VITAMINS W/ FOLIC ACID TABLET (FP) PO SCH (10:20)
[2018-05-12] MEDS: CYCLOBENZAPRINE HCL 10 MG TABLET (FP) PO PRN ×2 (10:20→22:20)
[2018-05-12] MEDS: cloNIDine HCL 0.1 MG TABLET PO SCH ×2 (10:20→22:20)
[2018-05-12] MEDS: LIDOCAINE 5% TOPICAL PATCH TP SCH (11:45)
--- NOTE | 2018-05-12 11:57 | PN ---
[facility] COWS - Scale Resting Pulse: 1= ME 81-100 Sweatin= Chills/Flushing Restless Observation: 0= Sits Still Pupil Size: 2= Moderately Dilated Bone or Joint Aches: 2= Severe Diffuse Aches Runny Nose/ Eye Tearin= None GI Upset > 30mins: 1= Stomach Cramp Tremor Observation of Outstretched Hands: 0= None Yawning Observation: 0= None Anxiety or Irritability: 1=Feels Anxious/Irritable Goose Flesh Skin: 3=Piloerection COWS Score: 11 BHS Progress Note (SOAP) Subjective: PATIENT C/O CHILLS, STOMACH CRAMPS AND BODY ACHES. Objective: 05/12/18 11:55 Vital Signs Temperature 97.8 F 05/12/18 09:27 Pulse Rate 94 H 05/12/18 09:27 Respiratory Rate 20 05/12/18 09:27 Blood Pressure 116/77 05/12/18 09:27 O2 Sat by Pulse Oximetry (%) Laboratory Tests 05/10/18 05/11/18 05/11/18 22:45 07:00 07:00 WBC 7.0 RBC 6.06 H Hgb 13.8 Hct 44.6 MCV 73.7 L MCH 22.7 L MCHC 30.9 L RDW 16.4 H Plt Count 167 MPV 9.6 Sodium 140 Potassium 4.1 Chloride 102 Carbon Dioxide 32 Anion Gap 6 L BUN 12 Creatinine 0.8 Creat Clearance w eGFR > 60 Random Glucose 100 Calcium 9.2 Total Bilirubin 0.5 AST 120 H ALT 206 H Alkaline Phosphatase 80 Total Protein 7.1 Albumin 3.2 L Urine Color Dkyellow Urine Appearance Cloudy Urine pH 5.0 Ur Specific [place] 1.020 Urine Protein Negative Urine Glucose (UA) Negative Urine Ketones Negative Urine Blood 3+ H Urine Nitrite Negative Urine Bilirubin Negative Urine Urobilinogen Negative Ur Leukocyte Esterase Negative Urine WBC (Auto) 6 Urine RBC (Auto) 74 Ur Epithelial Cells Rare Urine Mucus Rare RPR Titer 05/11/18 07:00 WBC RBC Hgb Hct MCV MCH MCHC RDW Plt Count MPV Sodium Potassium Chloride Carbon Dioxide Anion Gap BUN Creatinine Creat Clearance w eGFR Random Glucose Calcium Total Bilirubin AST ALT Alkaline Phosphatase Total Protein Albumin Urine Color Urine Appearance Urine pH Ur Specific [place] Urine Protein Urine Glucose (UA) Urine Ketones Urine Blood Urine Nitrite Urine Bilirubin Urine Urobilinogen Ur Leukocyte Esterase Urine WBC (Auto) Urine RBC (Auto) Ur Epithelial Cells Urine Mucus RPR Titer Nonreactive ALERT AND ORIENTED X 3 SKIN + GOOSE FLESH CAR S1S2 RESP CTA BL GI SOFT, BS+, NT EXT NO EDEMA Assessment: 05/12/18 11:56 OPIOD WITHDRAWAL SYNDROME Plan: CONTINUE DETOX ORDERED ENCOURAGE ORAL FLUIDS LIDOCAINE PATCH ORDERED FOR LBP CONTINUE TO MONITOR CLINICALLY
[2018-05-12 15:01] LABS: URINE APPEARANCE SLCLOUDY; URINE BILIRUBIN NEGATIVE (<2.0 mg/dL); URINE COLOR YELLOW; URINE GLUCOSE (UA) NEGATIVE (NEGATIVE); URINE KETONE NEGATIVE (NEGATIVE); URINE LEUK ESTERASE NEGATIVE (NEGATIVE); URINE NITRITE NEGATIVE (NEGATIVE); URINE PROTEIN NEGATIVE (NEGATIVE); URINE UROBILINOGEN 4.0 E.U/dl mg/dL (0.2-1.0)
[2018-05-12 15:33] LABS: CALCIUM OXALATE CRYSTALS RARE /hpf (NONE SEEN)
[2018-05-12 15:34] LABS: URINE MUCUS RARE
[2018-05-12 17:55] LABS: URINE BACTERIA RARE /hpf (NONE SEEN)
[2018-05-12] MEDS: THIAMINE HCL 100 MG TABLET (FP) PO SCH (22:20)
[2018-05-12] MEDS: LIDOCAINE PATCH REMOVAL MC SCH (22:22)
[2018-05-13] MEDS ORDERED: METHADONE HCL 5 MG TABLET (FOR DETOX USE ONLY) PO ONE (10:00)
[2018-05-13] MEDS: cloNIDine HCL 0.1 MG TABLET PO SCH ×2 (10:15→22:30)
[2018-05-13] MEDS: CYCLOBENZAPRINE HCL 10 MG TABLET (FP) PO PRN ×2 (10:15→22:30)
[2018-05-13] MEDS: diazePAM 5 MG TABLET PO PRN (10:15)
[2018-05-13] MEDS: PRENATAL VITAMINS W/ FOLIC ACID TABLET (FP) PO SCH (10:15)
[2018-05-13] MEDS: LIDOCAINE 5% TOPICAL PATCH TP SCH (10:17)
--- NOTE | 2018-05-13 14:02 | PN ---
[facility] Progress Note Note: PATIENT RECEIVING DETOX SERVICES FOR OPIOD WITHDRAWAL SYNDROME. PATIENT CONTINUE TO HAVE LOW BACK PAIN. DENIES N/V/D, HEADACHES, CP AND SOB. Vital Signs Temperature 96.5 F L 05/13/18 13:24 Pulse Rate 79 05/13/18 13:24 Respiratory Rate 18 05/13/18 13:24 Blood Pressure 120/70 05/13/18 13:24 O2 Sat by Pulse Oximetry (%) Laboratory Tests 05/10/18 05/11/18 05/11/18 22:45 07:00 07:00 WBC 7.0 RBC 6.06 H Hgb 13.8 Hct 44.6 MCV 73.7 L MCH 22.7 L MCHC 30.9 L RDW 16.4 H Plt Count 167 MPV 9.6 Sodium 140 Potassium 4.1 Chloride 102 Carbon Dioxide 32 Anion Gap 6 L BUN 12 Creatinine 0.8 Creat Clearance w eGFR > 60 Random Glucose 100 Calcium 9.2 Total Bilirubin 0.5 AST 120 H ALT 206 H Alkaline Phosphatase 80 Total Protein 7.1 Albumin 3.2 L Urine Color Dkyellow Urine Appearance Cloudy Urine pH 5.0 Ur Specific [place] 1.020 Urine Protein Negative Urine Glucose (UA) Negative Urine Ketones Negative Urine Blood 3+ H Urine Nitrite Negative Urine Bilirubin Negative Urine Urobilinogen Negative Ur Leukocyte Esterase Negative Urine WBC (Auto) 6 Urine RBC (Auto) 74 Ur Epithelial Cells Rare Calcium Oxalate Crystal Urine Bacteria Urine Mucus Rare RPR Titer 05/11/18 05/12/18 07:00 11:45 WBC RBC Hgb Hct MCV MCH MCHC RDW Plt Count MPV Sodium Potassium Chloride Carbon Dioxide Anion Gap BUN Creatinine Creat Clearance w eGFR Random Glucose Calcium Total Bilirubin AST ALT Alkaline Phosphatase Total Protein Albumin Urine Color Yellow Urine Appearance Slcloudy Urine pH 7.0 D Ur Specific [place] 1.017 Urine Protein Negative Urine Glucose (UA) Negative Urine Ketones Negative Urine Blood 1+ H Urine Nitrite Negative Urine Bilirubin Negative Urine Urobilinogen 4.0 e.u/dl Ur Leukocyte Esterase Negative Urine WBC (Auto) 1 Urine RBC (Auto) 24 Ur Epithelial Cells Calcium Oxalate Crystal Rare Urine Bacteria Rare Urine Mucus Rare RPR Titer Nonreactive PE; ALERT AND ORIENTED X 3 SKIN WARM AND DRY CAR S1S2 RESP CTA EXT NO EDEMA A/P; WITHDRAWAL SYNDROME HEMATURIA ORAL FLUIDS ENCOURAGED CONTINUE DETOX PATIENT ENCOURAGED TO FOLLOW UP WITH PCP/UROLOGIST UPON DISCHARGE WITHIN 1 WEEK FOR EVALUATION/TREATMENT OF HEMATURIA. CONTINUE TO MONITOR CLINICALLY
[2018-05-13] MEDS: MAG HYDROX/AL HYDROX/SIMETH 30 ML UNIT-DOSE CUP PO PRN (18:53)
--- NOTE | 2018-05-13 18:56 | PN ---
S Progress Note Note: Vital Signs Temperature 98.5 F 05/13/18 17:44 Pulse Rate 107 H 05/13/18 17:44 Respiratory Rate 16 05/13/18 17:44 Blood Pressure 113/73 05/13/18 17:44 O2 Sat by Pulse Oximetry (%) PATIENT WITH NAUSEA AND VOMITING ZOFRAN PRN FLUIDS TOLERATED CONTINUE TO MONITOR
[2018-05-13] MEDS: ONDANSETRON *ODT* 4 MG TABLET SL PRN (19:39)
[2018-05-13] MEDS: THIAMINE HCL 100 MG TABLET (FP) PO SCH (22:30)
[2018-05-13] MEDS: LIDOCAINE PATCH REMOVAL MC SCH (22:31)
[2018-05-14] MEDS: LOPERAMIDE HCL 2 MG CAPSULE PO PRN (06:24)
[2018-05-14] MEDS: MAG HYDROX/AL HYDROX/SIMETH 30 ML UNIT-DOSE CUP PO PRN ×3 (06:25→22:46)
[2018-05-14] MEDS: ONDANSETRON *ODT* 4 MG TABLET SL PRN ×2 (08:11→16:54)
[2018-05-14] MEDS ORDERED: METHADONE HCL 10 MG TABLET (FOR DETOX USE ONLY) PO ONE (10:00)
[2018-05-14] MEDS: PRENATAL VITAMINS W/ FOLIC ACID TABLET (FP) PO SCH (10:27)
[2018-05-14] MEDS: cloNIDine HCL 0.1 MG TABLET PO SCH ×2 (10:27→22:45)
[2018-05-14] MEDS: LIDOCAINE 5% TOPICAL PATCH TP SCH (10:27)
[2018-05-14] MEDS: TRIMETHOBENZAMIDE HCL 200MG/2ML INJ IM PRN ×2 (11:26→19:17)
--- NOTE | 2018-05-14 11:37 | PN ---
[facility] Progress Note (SOAP) Subjective: PATIENT C/O OF NAUSEA AND VOMITED X 2. Objective: 05/14/18 11:34 Vital Signs Temperature 97.1 F L 05/14/18 10: Pulse Rate 111 H 05/14/18 10:18 Respiratory Rate 20 05/14/18 10:18 Blood Pressure 130/88 05/14/18 10:18 O2 Sat by Pulse Oximetry (%) Laboratory Tests 05/10/18 05/11/18 05/11/18 22:45 07:00 07:00 WBC 7.0 RBC 6.06 H Hgb 13.8 Hct 44.6 MCV 73.7 L MCH 22.7 L MCHC 30.9 L RDW 16.4 H Plt Count 167 MPV 9.6 Sodium 140 Potassium 4.1 Chloride 102 Carbon Dioxide 32 Anion Gap 6 L BUN 12 Creatinine 0.8 Creat Clearance w eGFR > 60 Random Glucose 100 Calcium 9.2 Total Bilirubin 0.5 AST 120 H ALT 206 H Alkaline Phosphatase 80 Total Protein 7.1 Albumin 3.2 L Urine Color Dkyellow Urine Appearance Cloudy Urine pH 5.0 Ur Specific [place] 1.020 Urine Protein Negative Urine Glucose (UA) Negative Urine Ketones Negative Urine Blood 3+ H Urine Nitrite Negative Urine Bilirubin Negative Urine Urobilinogen Negative Ur Leukocyte Esterase Negative Urine WBC (Auto) 6 Urine RBC (Auto) 74 Ur Epithelial Cells Rare Calcium Oxalate Crystal Urine Bacteria Urine Mucus Rare RPR Titer 05/11/18 05/12/18 07:00 11:45 WBC RBC Hgb Hct MCV MCH MCHC RDW Plt Count MPV Sodium Potassium Chloride Carbon Dioxide Anion Gap BUN Creatinine Creat Clearance w eGFR Random Glucose Calcium Total Bilirubin AST ALT Alkaline Phosphatase Total Protein Albumin Urine Color Yellow Urine Appearance Slcloudy Urine pH 7.0 D Ur Specific [place] 1.017 Urine Protein Negative Urine Glucose (UA) Negative Urine Ketones Negative Urine Blood 1+ H Urine Nitrite Negative Urine Bilirubin Negative Urine Urobilinogen 4.0 e.u/dl Ur Leukocyte Esterase Negative Urine WBC (Auto) 1 Urine RBC (Auto) 24 Ur Epithelial Cells Calcium Oxalate Crystal Rare Urine Bacteria Rare Urine Mucus Rare RPR Titer Nonreactive ALERT AND ORIENTED SKIN WARM AND DRY AMB AD ETHAN SITTING IN CHAIR, C/O NAUSEA Assessment: 05/14/18 11:36 WITHDRAWAL SYNDROME Plan: CONTINUE DETOX ORDERED G[place] 120ML PO BID TIGAN 200MG IM Q8H PRN CONTINUE TO MONITOR CLINICALLY
[2018-05-14] MEDS: CYCLOBENZAPRINE HCL 10 MG TABLET (FP) PO PRN (22:45)
[2018-05-14] MEDS: LIDOCAINE PATCH REMOVAL MC SCH (22:45)
[2018-05-14] MEDS: THIAMINE HCL 100 MG TABLET (FP) PO SCH (22:45)
[2018-05-15] MEDS: TRIMETHOBENZAMIDE HCL 200MG/2ML INJ IM PRN ×2 (03:20→22:47)
[2018-05-15] MEDS ORDERED: METHADONE HCL 5 MG TABLET (FOR DETOX USE ONLY) PO ONE (06:00)
[2018-05-15] MEDS: LOPERAMIDE HCL 2 MG CAPSULE PO PRN ×2 (09:13→15:12)
[2018-05-15] MEDS: cloNIDine HCL 0.1 MG TABLET PO SCH ×2 (10:04→22:13)
[2018-05-15] MEDS: PRENATAL VITAMINS W/ FOLIC ACID TABLET (FP) PO SCH (10:04)
[2018-05-15] MEDS: LIDOCAINE 5% TOPICAL PATCH TP SCH (10:04)
--- NOTE | 2018-05-15 14:00 | PN ---
S Progress Note (SOAP) Subjective: Nausea, vomiting, diarrhea, poor appetite (drinking ensure). Patient reported he has straight medicaid and wants to stay due to his symptoms. Patient also seeking rehab here at [facility]. Objective: 05/15/18 13:57 Last Vital Signs Temp Pulse Resp BP Pulse Ox 97.8 F 117 H 18 116/82 05/15/18 13:14 05/15/18 13:14 05/15/18 13:14 05/15/18 13:14 Laboratory Tests 05/10/18 05/11/18 05/11/18 22:45 07:00 07:00 WBC 7.0 RBC 6.06 H Hgb 13.8 Hct 44.6 MCV 73.7 L MCH 22.7 L MCHC 30.9 L RDW 16.4 H Plt Count 167 MPV 9.6 Sodium 140 Potassium 4.1 Chloride 102 Carbon Dioxide 32 Anion Gap 6 L BUN 12 Creatinine 0.8 Creat Clearance w eGFR > 60 Random Glucose 100 Calcium 9.2 Total Bilirubin 0.5 AST 120 H ALT 206 H Alkaline Phosphatase 80 Total Protein 7.1 Albumin 3.2 L Urine Color Dkyellow Urine Appearance Cloudy Urine pH 5.0 Ur Specific [place] 1.020 Urine Protein Negative Urine Glucose (UA) Negative Urine Ketones Negative Urine Blood 3+ H Urine Nitrite Negative Urine Bilirubin Negative Urine Urobilinogen Negative Ur Leukocyte Esterase Negative Urine WBC (Auto) 6 Urine RBC (Auto) 74 Ur Epithelial Cells Rare Calcium Oxalate Crystal Urine Bacteria Urine Mucus Rare RPR Titer 05/11/18 05/12/18 07:00 11:45 WBC RBC Hgb Hct MCV MCH MCHC RDW Plt Count MPV Sodium Potassium Chloride Carbon Dioxide Anion Gap BUN Creatinine Creat Clearance w eGFR Random Glucose Calcium Total Bilirubin AST ALT Alkaline Phosphatase Total Protein Albumin Urine Color Yellow Urine Appearance Slcloudy Urine pH 7.0 D Ur Specific [place] 1.017 Urine Protein Negative Urine Glucose (UA) Negative Urine Ketones Negative Urine Blood 1+ H Urine Nitrite Negative Urine Bilirubin Negative Urine Urobilinogen 4.0 e.u/dl Ur Leukocyte Esterase Negative Urine WBC (Auto) 1 Urine RBC (Auto) 24 Ur Epithelial Cells Calcium Oxalate Crystal Rare Urine Bacteria Rare Urine Mucus Rare RPR Titer Nonreactive Labs reviewed: UA shows microscopic hematuria (improving) Assessment: 05/15/18 13:59 Withdrawal sxs Noted with microscopic hematuria Plan: Continue detox Microscopic hematuria: improving, encouraged PO water intake, follow up with your PCP for further evaluation
[2018-05-15] MEDS: LIDOCAINE PATCH REMOVAL MC SCH (22:12)
[2018-05-15] MEDS: CYCLOBENZAPRINE HCL 10 MG TABLET (FP) PO PRN (22:12)
[2018-05-15] MEDS: THIAMINE HCL 100 MG TABLET (FP) PO SCH (22:13)
[2018-05-16] MEDS: PRENATAL VITAMINS W/ FOLIC ACID TABLET (FP) PO SCH (10:31)
[2018-05-16] MEDS: cloNIDine HCL 0.1 MG TABLET PO SCH (10:31)
[2018-05-16] MEDS: LOPERAMIDE HCL 2 MG CAPSULE PO PRN (10:32)
[2018-05-16] MEDS: CYCLOBENZAPRINE HCL 10 MG TABLET (FP) PO PRN (10:32)
[2018-05-16] MEDS: LIDOCAINE 5% TOPICAL PATCH TP SCH (10:32)
[2018-05-16 13:46] VITALS: BP 109/75; PULSE 120; TEMP 97.3
--- NOTE | 2018-05-16 13:55 | DS ---
[facility] Detox Discharge Summary Admission Date: 05/10/18 Discharge Date: 05/16/18 - History Present History: Cocaine Dependence, Opioid Dependence Additional Comments: Patient medically. Patient to follow up with primary care provider in 1 - 2 weeks. Pertinent Past History: Vital Signs Temperature 97.3 F L 05/16/18 13:45 Pulse Rate 120 H 05/16/18 13:45 Respiratory Rate 18 05/16/18 13:45 Blood Pressure 109/75 05/16/18 13:45 O2 Sat by Pulse Oximetry (%) Laboratory Last Values WBC 7.0 K/mm3 (4.0-10.0) 05/11/18 07:00 RBC 6.06 M/mm3 (4.00-5.60) H 05/11/18 07:00 Hgb 13.8 GM/dL (11.7-16.9) 05/11/18 07:00 Hct 44.6 % (35.4-49) 05/11/18 07:00 MCV 73.7 fl (80-96) L 05/11/18 07:00 MCH 22.7 pg (25.7-33.7) L 05/11/18 07:00 MCHC 30.9 g/dl (32.0-35.9) L 05/11/18 07:00 RDW 16.4 % (11.9-15.9) H 05/11/18 07:00 Plt Count 167 K/MM3 (134-434) 05/11/18 07:00 MPV 9.6 fl (7.5-11.1) 05/11/18 07:00 Sodium 140 mmol/L (136-145) 05/11/18 07:00 Potassium 4.1 mmol/L (3.5-5.1) 05/11/18 07:00 Chloride 102 mmol/L (98-107) 05/11/18 07:00 Carbon Dioxide 32 mmol/L (21-32) 05/11/18 07:00 Anion Gap 6 MMOL/L (8-16) L 05/11/18 07:00 BUN 12 mg/dL (7-18) 05/11/18 07:00 Creatinine 0.8 mg/dL (0.55-1.3) 05/11/18 07:00 Creat Clearance w eGFR > 60 (>60) 05/11/18 07:00 Random Glucose 100 mg/dL (74-106) 05/11/18 07:00 Calcium 9.2 mg/dL (8.5-10.1) 05/11/18 07:00 Total Bilirubin 0.5 mg/dL (0.2-1) 05/11/18 07:00 AST 120 U/L (15-37) H 05/11/18 07:00 ALT 206 U/L (13-61) H 05/11/18 07:00 Alkaline Phosphatase 80 U/L (45-117) 05/11/18 07:00 Total Protein 7.1 g/dl (6.4-8.2) 05/11/18 07:00 Albumin 3.2 g/dl (3.4-5.0) L 05/11/18 07:00 Urine Color Yellow 05/12/18 11:45 Urine Appearance Slcloudy 05/12/18 11:45 Urine pH 7.0 (5.0-8.0) D 05/12/18 11:45 Ur Specific [place] 1.017 (1.001-1.035) 05/12/18 11:45 Urine Protein Negative (NEGATIVE) 05/12/18 11:45 Urine Glucose (UA) Negative (NEGATIVE) 05/12/18 11:45 Urine Ketones Negative (NEGATIVE) 05/12/18 11:45 Urine Blood 1+ (NEGATIVE) H 05/12/18 11:45 Urine Nitrite Negative (NEGATIVE) 05/12/18 11:45 Urine Bilirubin Negative (<2.0 mg/dL) 05/12/18 11:45 Urine Urobilinogen 4.0 e.u/dl mg/dL (0.2-1.0) 05/12/18 11:45 Ur Leukocyte Esterase Negative (NEGATIVE) 05/12/18 11:45 Urine WBC (Auto) 1 /hpf (3-5) 05/12/18 11:45 Urine RBC (Auto) 24 /hpf (0-3) 05/12/18 11:45 Ur Epithelial Cells Rare /HPF (FEW) 05/10/18 22:45 Calcium Oxalate Crystal Rare /hpf (NONE SEEN) 05/12/18 11:45 Urine Bacteria Rare /hpf (NONE SEEN) 05/12/18 11:45 Urine Mucus Rare 05/12/18 11:45 RPR Titer Nonreactive (NONREACTIVE) 05/11/18 07:00 - Physical Exam Results Vital Signs: Vital Signs Temperature 97.3 F L 05/16/18 13:45 Pulse Rate 120 H 05/16/18 13:45 Respiratory Rate 18 05/16/18 13:45 Blood Pressure 109/75 05/16/18 13:45 O2 Sat by Pulse Oximetry (%) - Treatment Hospital Course: Detox Protocol Followed, Detoxed Safely, Responded well, Discharged Condition Good, Rehab Referral Accepted Patient has Accepted a Rehab Referral to: [facility] - Medication Discharge Medications: Ambulatory Orders Albuterol Sulfate Inhaler - [Ventolin HFA Inhaler -] 2 puff IH Q4H PRN #1 inhaler 04/29/17 - Diagnosis (1) IV drug user Current Visit: Yes Status: Acute (2) Weight loss Current Visit: Yes Status: Acute (3) Asthma Current Visit: Yes Status: Chronic Qualifiers: Asthma severity: mild intermittent Asthma complication type: uncomplicated (4) Cocaine dependence Current Visit: Yes Status: Chronic Qualifiers: Substance use status: uncomplicated Qualified Code(s): F14.20 - Cocaine dependence, uncomplicated (5) Nicotine dependence Current Visit: No Status: Chronic Qualifiers: Nicotine product type: cigarettes Substance use status: uncomplicated Qualified Code(s): F17.210 - Nicotine dependence, cigarettes, uncomplicated (6) Opioid dependence with withdrawal Current Visit: No Status: Chronic
== END 2018-05-16 15:16 | disposition other institution (70) | DRG 773 ==
LOC: YASAS 17:16 → Y3N 18:54
PROC: HZ2ZZZZ Detoxification Services for Substance Abuse Treatment (ICD-10-PCS; principal; 2018-05-10)
DX: F11.23 Opioid dependence with withdrawal (principal); F14.20 Cocaine dependence, uncomplicated; F12.20 Cannabis dependence, uncomplicated; F17.210 Nicotine dependence, cigarettes, uncomplicated; J45.909 Unspecified asthma, uncomplicated; R31.29 Other microscopic hematuria; R63.4 Abnormal weight loss; Z68.23 Body mass index [BMI] 23.0-23.9, adult
CPT/HCPCS: 36415; 80053; 81003; 81015; 85027; 86593; 93005; 93010; J0735; Q0162

== ENCOUNTER 2018-05-16 15:24 | Inpatient (IN) | payer OTHER ==
[2018-05-16] MEDS ORDERED: ALBUTEROL SO4 8 GM HFA INHALER IH PRN (21:14)
--- NOTE | 2018-05-16 21:14 | HP ---
[facility] Rehab Assess/Revision - Admission History Admitted to Rehab from: [facility] [place] Date of Admission to Rehab: 05/16/2018 - Vital signs Vital Signs: Vital Signs Period Temp Pulse Resp BP Sys/Sánchez Pulse Ox Last 24 Hr 98.0 F 128 18 111/73 - Findings Detox History & Physical reviewed: Yes Concur with findings: Yes
[2018-05-16] MEDS ORDERED: P-EPHED 60MG/TRIPROLIDI 2.5MG TABLET PO PRN (21:15)
[2018-05-16] MEDS ORDERED: guaiFENesin/D-METHORPHAN HB 10 ML UNIT-DOSE CUPS PO PRN (21:15)
[2018-05-16] MEDS ORDERED: MAGNESIUM CITRATE 300 ML BOTTLE PO PRN (21:15)
[2018-05-16] MEDS ORDERED: MENTHOL/PHENOL 1 EACH UD MM PRN (21:15)
[2018-05-16] MEDS ORDERED: ACETAMINOPHEN 325 MG TABLET (FP) PO PRN (21:15)
[2018-05-16] MEDS ORDERED: MAG HYDROX/AL HYDROX/SIMETH 30 ML UNIT-DOSE CUP PO PRN (21:15)
[2018-05-16] MEDS ORDERED: hydrOXYzine PAMOATE 50 MG CAPSULE (FP) PO PRN (21:15)
[2018-05-16] MEDS ORDERED: MAGNESIUM HYDROX 2400MG/30ML ORAL SUSPENSION 30 ML CUP PO PRN (21:15)
[2018-05-16] MEDS ORDERED: ONDANSETRON *ODT* 4 MG TABLET SL PRN (21:23)
[2018-05-16] MEDS ORDERED: NICOTINE POLACRILEX 2 MG GUM BUC PRN (21:29)
[2018-05-16] MEDS: IBUPROFEN 400 MG TABLET (FP) PO PRN (22:06)
[2018-05-16] MEDS: THIAMINE HCL 100 MG TABLET (FP) PO SCH (22:06)
[2018-05-16] MEDS: MELATONIN 5 MG TABLETS PO PRN (22:07)
[2018-05-16] MEDS: LOPERAMIDE HCL 2 MG CAPSULE PO PRN (22:42)
[2018-05-17] MEDS: PRENATAL VITAMINS W/ FOLIC ACID TABLET (FP) PO SCH (09:35)
[2018-05-17] MEDS: IBUPROFEN 400 MG TABLET (FP) PO PRN ×2 (09:35→21:10)
[2018-05-17] MEDS: LOPERAMIDE HCL 2 MG CAPSULE PO PRN ×2 (09:35→16:57)
[2018-05-17] MEDS: NICOTINE 14 MG/24 HOURS TOPICAL PATCH TD SCH (09:36)
[2018-05-17] MEDS: THIAMINE HCL 100 MG TABLET (FP) PO SCH (21:09)
[2018-05-17] MEDS: MELATONIN 5 MG TABLETS PO PRN (21:11)
[2018-05-18] MEDS: NICOTINE 14 MG/24 HOURS TOPICAL PATCH TD SCH (09:53)
[2018-05-18] MEDS: PRENATAL VITAMINS W/ FOLIC ACID TABLET (FP) PO SCH (09:53)
[2018-05-18] MEDS: MELATONIN 5 MG TABLETS PO PRN (21:10)
[2018-05-18] MEDS: IBUPROFEN 400 MG TABLET (FP) PO PRN (21:10)
[2018-05-18] MEDS: THIAMINE HCL 100 MG TABLET (FP) PO SCH (21:11)
--- NOTE | 2018-05-19 06:30 | HP ---
Psychiatrist Admission - Data Date of interview: 05/19/18 Admission source: 3N Identifying data: This is the first [facility] admission for this 52 years old single male, father of 5 children, unemployed on public assistance, homeless Medical History: Significant for bronchial asthma. Smokes 3 cigarettes daily Psychiatric History: Denies history of previous psychiatric treatment Physical/Sexual Abuse/Trauma History: Denies history of emotional, physical or sexual abuse as well as DV relationship Additional Comment: Reports history of one previous misdemeanor arrest on [facility] of [facility] community [facility] Vital Signs: Vital Signs - 24 hr 05/18/18 05/19/18 05/19/18 06:49 00:30 03:30 Temperature 97.8 F Pulse Rate 93 H Respiratory 16 18 18 Rate Blood Pressure 132/80 Allergies/Adverse Reactions: Allergies Allergy/AdvReac Type Severity Reaction Status Date / Time Fish Containing Products Allergy Severe Rash Verified 05/10/18 17:39 Date of last physical exam: 05/10/18 Concur with the findings of this exam: Yes - Substance Abuse/Tx History Hx Alcohol Use: No Hx Substance Use: Yes Substance Use Type: Heroin (Started using heroin at age25, consumes 10 bags daily. Last used on 05/09/18), Marijuana (Started smoking marijuana at age 15, consumes 2 blunts daily. Last smoked on 05/06/18), Opiates (Started using non Rx methadone at age 52, consumes 10 mg 1-2 times weekly. Last used on 05/06/18) Hx Substance Use Treatment: Yes (5 previous inpt detox(3 @ [facility]) & one inpt [facility]) Mental Status Exam - Mental Status Exam Alert and Oriented to: Time, Place Cognitive Function: Fair Patient Appearance: Well Groomed Mood: Depressed (mildly) Affect: Appropriate Speech Pattern: Clear Voice Loudness: Normal Thought Process: Intact, Goal Oriented Hallucinations: Denies Suicidal Ideation: Denies Homicidal Ideation: Denies Insight/Judgement: Fair Sleep: Poorly Appetite: Good Muscle strength/Tone: Normal Gait/Station: Normal Psychiatric Findings - Problem List ([place] 1, 2,3) (1) Opioid dependence Current Visit: Yes Status: Acute (2) Cannabis dependence Current Visit: Yes Status: Acute (3) Nicotine dependence Current Visit: No Status: Chronic Qualifiers: Nicotine product type: cigarettes Substance use status: uncomplicated Qualified Code(s): F17.210 - Nicotine dependence, cigarettes, uncomplicated (4) Substance induced mood disorder Current Visit: Yes Status: Acute (5) Substance-induced sleep disorder Current Visit: Yes Status: Acute (6) Opioid dependence Current Visit: Yes Status: Acute (7) Cannabis dependence Current Visit: Yes Status: Acute (8) Asthma Current Visit: No Status: Chronic Qualifiers: Asthma severity: mild intermittent Asthma complication type: uncomplicated - Initial Treatment Plan Initial Treatment Plan: 1) Start Belsomra 10 mg po HS prn for insomnia. 2) Monitor progress
[2018-05-19 06:38] VITALS: PULSE 90
[2018-05-19] MEDS: NICOTINE 14 MG/24 HOURS TOPICAL PATCH TD SCH (10:21)
[2018-05-19] MEDS: PRENATAL VITAMINS W/ FOLIC ACID TABLET (FP) PO SCH (10:21)
[2018-05-19] MEDS: IBUPROFEN 400 MG TABLET (FP) PO PRN (21:11)
[2018-05-19] MEDS: THIAMINE HCL 100 MG TABLET (FP) PO SCH (21:11)
[2018-05-19] MEDS ORDERED: SUVOREXANT 10 MG TABLET PO PRN (22:00)
[2018-05-20 06:46] VITALS: BP 134/89; TEMP 98
[2018-05-20] MEDS: NICOTINE 14 MG/24 HOURS TOPICAL PATCH TD SCH (10:07)
[2018-05-20] MEDS: PRENATAL VITAMINS W/ FOLIC ACID TABLET (FP) PO SCH (10:07)
--- NOTE | 2018-05-20 16:17 | PN ---
[facility] Progress Note Note: PT WAS NEWLY ADMITTED . PT SIGNED OUT AMA THIS MORNING STATING HE DOES NOT WANT TO BE HERE. ALERT O X 3. NAD. PT MET WITH COUNSELING STAFF BEFORE EXITING.
== END 2018-05-20 10:11 | disposition left against medical advice (07) | DRG 770 ==
LOC: YASAS 15:24 → Y5N 15:25
PROVIDERS: ADMIT Psychiatry & Neurology Psychiatry; ATTEND Psychiatry & Neurology Psychiatry
PROC: HZ42ZZZ Group Counseling for Substance Abuse Treatment, Cognitive-Behavioral (ICD-10-PCS; principal; 2018-05-16)
DX: F11.20 Opioid dependence, uncomplicated (principal); F12.20 Cannabis dependence, uncomplicated; F17.210 Nicotine dependence, cigarettes, uncomplicated; F19.24 Other psychoactive substance dependence with psychoactive substance-induced mood disorder; F19.282 Other psychoactive substance dependence with psychoactive substance-induced sleep disorder; J45.20 Mild intermittent asthma, uncomplicated